=== PATIENT | female | born 1975 | race Caucasian/White ===

== ENCOUNTER 2017-02-01 15:17 | Emergency (ER) | payer OTHER ==
[2017-02-01 16:29] VITALS: BP 136/83
--- NOTE | 2017-02-01 16:49 | UC ---
UC General HPI - HPI Summary HPI Summary: Pt presents with c/o inability to sleep throughout the night. Pt has history of insomnia and currently is taking OTC benadryl and melatonin. Pt reports that she is able to fall asleep but only able to sleep 3-4 hours at time. Pt recently lost her job and reports feeling "anxious" about that. - History of Current Complaint Chief Complaint: UCGeneralIllness Stated Complaint: HARD TIME SLEEPING Time Seen by Provider: 02/01/17 16:29 Hx Obtained From: Patient Onset/Duration: Gradual Onset, Lasting Weeks, Still Present Timing: Constant - nightly Associated Signs & Symptoms: Positive: Other - insomnia - Allergy/Home Medications Allergies/Adverse Reactions: Allergies Allergy/AdvReac Type Severity Reaction Status Date / Time No Known Allergies Allergy Verified 02/01/17 16:28 Home Medications: Home Medications Canagliflozin (NF) [Invokana (NF)] 300 mg PO DAILY 02/01/17 [History Confirmed 02/01/17] DULoxetine DR CAP* [Cymbalta CAP*] 60 mg PO DAILY 02/01/17 [History Confirmed ] Pravastatin (NF) [Pravachol (NF)] 40 mg PO 1700 02/01/17 [History Confirmed ] metFORMIN* [Glucophage 500 MG TAB *] 1,000 mg PO 0800,1700 02/01/17 [History Confirmed 02/01/17] PMH/Surg Hx/FS Hx/Imm Hx Previously Healthy: Yes - hx insomnia, anxiety Psychological History: Anxiety, Depression - Surgical History Surgical History: Yes Surgery Procedure, Year, and Place: GASTRIC BYPASS 2008. GALL BLADDER REMOVAL 2010 - Family History Known Family History: Positive: Cardiac Disease - Social History Occupation: Unemployed Lives: With Family Alcohol Use: None Substance Use Type: None Smoking Status (MU): Never Smoked Tobacco Have You Smoked in the Last Year: No Review of Systems Constitutional: Other - inability to stay asleep Skin: Negative Eyes: Negative ENT: Negative Respiratory: Negative Cardiovascular: Negative Gastrointestinal: Negative Genitourinary: Negative Motor: Negative Neurovascular: Negative Musculoskeletal: Negative Neurological: Negative Psychological: Negative All Other Systems Reviewed And Are Negative: Yes Physical Exam Triage Information Reviewed: Yes Appearance: Well-Appearing Vital Signs: Initial Vital Signs Temp 98.1 F 02/01/17 16:20 Pulse 104 02/01/17 16:20 Resp 16 02/01/17 16:20 BP 136/83 02/01/17 16:20 Pulse Ox 99 02/01/17 16:20 Eye Exam: Normal ENT Exam: Normal Neck exam: Normal Respiratory Exam: Normal Cardiovascular Exam: Normal Musculoskeletal Exam: Normal Neurological Exam: Normal Psychological Exam: Normal Skin Exam: Normal Course/Dx - Differential Dx - Multi-Symptom Differential Diagnoses: Other - insomnia, anxiety Provider Diagnoses: insomnia Discharge - Discharge Plan Condition: Stable Disposition: HOME Prescriptions: hydrOXYzine HCL TAB* [Atarax TAB 50 MG *] 50 mg PO BEDTIME PRN #15 tab PRN Reason: Insomnia Patient Education Materials: Insomnia (ED) Referrals: [facility] Vera [Medical Doctor] - Non Staff,Doctor [Primary Care Provider] - As Soon As Possible
== END 2017-02-01 16:59 | disposition home or self-care (01) ==
LOC: UCCORT 15:17
DX: G47.00 Insomnia, unspecified (principal); F41.9 Anxiety disorder, unspecified; F32.9 Major depressive disorder, single episode, unspecified
CPT/HCPCS: 99212; G0463

== ENCOUNTER 2017-10-01 17:20 | Emergency (ER) | payer OTHER ==
[2017-10-01 17:47] VITALS: BP 164/79
--- NOTE | 2017-10-01 18:20 | UC ---
General HPI - HPI Summary HPI Summary: 42 year old female with complaint of general malaise. Has had intermittent dizziness over the past month and slightly worse the past 2 weeks. Is a diabetic but never went back to [facility] in over 6 mo . Her A1c was about 7 but not sure now. Has not checked sugar at home. No syncope or pre syncope. No CP or palpitations. No vision changes. (+) Polyuria. not taking meds or adhering to diet. has new job and did not want to miss work . has been diabetic for 20 years after she had her first child - History of Current Complaint Chief Complaint: UCDizziness Stated Complaint: DIZZINESS (HX DIABETES) Time Seen by Provider: 10/01/17 18:04 Hx Obtained From: Patient Hx Last Menstrual Period: 09/29/17 Onset/Duration: Gradual Onset Timing: Constant Onset Severity: Moderate Current Severity: Moderate Pain Intensity: 5 - Allergy/Home Medications Allergies/Adverse Reactions: Allergies Allergy/AdvReac Type Severity Reaction Status Date / Time No Known Allergies Allergy Verified 10/01/17 17:47 PMH/Surg Hx/FS Hx/Imm Hx Previously Healthy: Yes Endocrine History: Diabetes - Surgical History Surgical History: Yes Surgery Procedure, Year, and Place: GASTRIC BYPASS 2008. GALL BLADDER REMOVAL 2010 - Family History Known Family History: Positive: None, Cardiac Disease - Social History Occupation: Employed Full-time Lives: With Family Alcohol Use: None Substance Use Type: None Smoking Status (MU): Never Smoked Tobacco Have You Smoked in the Last Year: No Review of Systems Constitutional: Fatigue Genitourinary: Frequency Neurological: Weakness Is Patient Immunocompromised?: No All Other Systems Reviewed And Are Negative: Yes Physical Exam Triage Information Reviewed: Yes Appearance: Well-Appearing, No Pain Distress, Well-Nourished Vital Signs: Initial Vital Signs Temp 98.7 F 10/01/17 17:41 Pulse 112 10/01/17 17:41 Resp 18 10/01/17 17:41 BP 164/79 10/01/17 17:41 Pulse Ox 99 10/01/17 17:41 Vital Signs Reviewed: Yes Eye Exam: Normal ENT Exam: Normal Dental Exam: Normal Neck exam: Normal Neck: Positive: 1 Respiratory Exam: Normal Cardiovascular Exam: Normal Abdominal Exam: Normal Musculoskeletal Exam: Normal Neurological Exam: Normal Psychological Exam: Normal Skin Exam: Normal Course/Dx - Course Course Of Treatment: NEeds further work up . Go to ED . Declined ambulance and states she will go to ED. Aware of risks of not geting work up like DKA / coma / . i Spoke with Anna Lin in the ED and pt will go directly there to the ED for labs and work up . Her BS off the charts here. BP also up and needs attention - Differential Dx - Multi-Symptom Provider Diagnoses: Uncontrolled Diabetes. malaise Discharge - Sign-Out/Discharge Documenting (check all that apply): Discharge - Discharge Plan Condition: Guarded Disposition: [facility] Patient Education Materials: Type 2 Diabetes in Adults (ED) Referrals: [facility] BaroneJose Alberto [Primary Care Provider] - Additional Instructions: PLEASE GO DIRECTLY TO THE EMERGENCY ROOM FOR IMMEDIATE WORK UP . DO NOT GO HOME. IF YOU DO NOT GO TO GET WORKED UP THEN YOUR SYMPTOMS COULD WORSEN AND YOU COULD END UP IN A COMA. - Billing Disposition and Condition Condition: GUARDED Disposition: EMTALA
== END 2017-10-01 18:31 | disposition short-term general hospital (02) ==
LOC: UCCORT 17:20
DX: E11.9 Type 2 diabetes mellitus without complications (principal); R53.81 Other malaise
CPT/HCPCS: 93005; 99212; G0463

== ENCOUNTER 2018-11-23 12:11 | Emergency (ER) | payer MEDICAID, OTHER ==
[2018-11-23 12:30] VITALS: BP 124/73
--- NOTE | 2018-11-23 12:41 | UC ---
Ear Complaint HPI - HPI Summary HPI Summary: left ear pain x 2 days, clear discharge for the left ear difficulty hearing with both ears nasal congestion , pnd , sinus pain and pressure x 1 week no cough , no feve, no chills - History of Current Complaint Chief Complaint: UCGeneralIllness Stated Complaint: LEFT EAR Time Seen by Provider: 11/23/18 12:31 Hx Obtained From: Patient Hx Last Menstrual Period: 10/2018 ?: No Onset/Duration: Gradual Onset, Lasting Days - 2, Still Present Severity Initially: Moderate Severity Currently: Moderate Pain Intensity: 0 Aggravating Factors: Nothing Alleviating Factors: Nothing Associated Signs/Symptoms: Positive: Discharge - clear discharge for left ear, Hearing Loss - bilateral decrease hearing, URI Symptoms. Negative: Foreign Body Sensation, Trauma to Ear, Swelling @ - Allergies/Home Medications Allergies/Adverse Reactions: Allergies Allergy/AdvReac Type Severity Reaction Status Date / Time No Known Allergies Allergy Verified 11/23/18 12:26 Home Medications: Home Medications Guaifen/Phenyleph/Acetaminophn [Tylenol Sinus Severe Caplet] 1 tab PO ONCE PRN 11/23/18 [History Confirmed 11/23/18] PMH/Surg Hx/FS Hx/Imm Hx Endocrine History: Diabetes Cardiovascular History: Hypertension Psychological History: Anxiety, Depression - Surgical History Surgical History: Yes Surgery Procedure, Year, and Place: GASTRIC BYPASS 2008. GALL BLADDER REMOVAL 2010 - Family History Known Family History: Positive: None, Cardiac Disease - Social History Alcohol Use: None Substance Use Type: None Smoking Status (MU): Never Smoked Tobacco Have You Smoked in the Last Year: No Review of Systems All Other Systems Reviewed And Are Negative: Yes Constitutional: Positive: Negative Skin: Positive: Negative Eyes: Positive: Negative ENT: Positive: Ear Ache, Nasal Discharge, Sinus Congestion, Sinus Pain/ Tenderness Respiratory: Positive: Negative Cardiovascular: Positive: Negative Is Patient Immunocompromised?: No Physical Exam Triage Information Reviewed: Yes Appearance: Well-Appearing, No Pain Distress, Well-Nourished Vital Signs: Initial Vital Signs Temp 98.6 F 11/23/18 12:27 Pulse 89 11/23/18 12:27 Resp 16 11/23/18 12:27 BP 124/73 11/23/18 12:27 Pulse Ox 100 11/23/18 12:27 Vital Signs Reviewed: Yes Eye Exam: Normal Eyes: Positive: Conjunctiva Clear ENT: Positive: Normal ENT inspection, Hearing grossly normal, Pharynx normal, Nasal congestion, Nasal drainage, TM bulging - left, TM dull - left, TM red - left TM, Other - cerumen impaction right ear Neck: Positive: Supple, Nontender, No Lymphadenopathy Respiratory: Positive: Chest non-tender, Lungs clear, Normal breath sounds Cardiovascular: Positive: RRR, No Murmur, Pulses Normal Skin Exam: Normal Ear Complaint Course/Dx - Differential Dx/Diagnosis Provider Diagnosis: Otitis media of left ear, Impacted cerumen of right ear Discharge - Sign-Out/Discharge Documenting (check all that apply): Patient Departure All imaging exams completed and their final reports reviewed: No Studies - Discharge Plan Condition: Stable Disposition: HOME Prescriptions: Amoxicillin PO (*) [Amoxicillin 875 MG (*)] 875 mg PO BID #20 tab Patient Education Materials: Cerumen Impaction (ED), Ear Infection (ED) Referrals: No Primary Care Phys,NOPCP [Primary Care Provider] - 7 Days - Billing Disposition and Condition Condition: STABLE Disposition: Home
== END 2018-11-23 12:56 | disposition home or self-care (01) ==
LOC: UCCORT 12:11
DX: H66.92 Otitis media, unspecified, left ear (principal); H61.21 Impacted cerumen, right ear; E11.9 Type 2 diabetes mellitus without complications; I10 Essential (primary) hypertension; F41.9 Anxiety disorder, unspecified; F32.9 Major depressive disorder, single episode, unspecified
CPT/HCPCS: 99212; G0463